=== PATIENT | female | born 1980 | race Caucasian/White ===

== ENCOUNTER 2024-05-06 20:16 | Emergency (ER) | payer OTHER ==
[~2024-05-06] VITALS: Ht 157.5 cm; Wt 99.8 kg
[2024-05-06 20:18] VITALS: BP 118/68; PULSE 111; RESP 16; TEMP 96.8; O2SAT 98
[2024-05-06] MEDS: predniSONE 20 MG TAB PO ONE (20:39)
[2024-05-06 21:10] VITALS: PULSE 91; PULSE 94; RESP 20; RESP 22; O2SAT 97
[2024-05-06] MEDS: ALBUTEROL 0.083% 2.5 MG/3 ML NEBU INH ONE (21:10)
[2024-05-06] MEDS: ALBUTEROL SULFATE/IPRATROPIU 3 ML SOL IH ONE (21:10)
[2024-05-06] MEDS ORDERED: PRED20TA5 PO (21:23)
[2024-05-06 21:48] VITALS: BP 118/68; PULSE 91; RESP 20; TEMP 96.8; O2SAT 97
== END 2024-05-06 21:48 | disposition home or self-care (01) ==
LOC: MED 20:16
DX: J45.901 Unspecified asthma with (acute) exacerbation (principal); E11.9 Type 2 diabetes mellitus without complications; F17.200 Nicotine dependence, unspecified, uncomplicated; Z79.4 Long term (current) use of insulin; Z79.899 Other long term (current) drug therapy; Z90.49 Acquired absence of other specified parts of digestive tract; Z98.890 Other specified postprocedural states
CPT/HCPCS: 94640; 99283; J7512; J7613

== ENCOUNTER 2024-05-12 14:05 | Emergency (ER) | payer OTHER ==
[~2024-05-12] VITALS: Ht 157.5 cm; Wt 106.1 kg
[~2024-05-12 14:05] MED LIST: PRED20TA5 PO
[2024-05-12 14:13] VITALS: BP 131/107; PULSE 82; RESP 16; TEMP 99.3; O2SAT 97
[2024-05-12 15:00] LABS: BASOPHILS # (AUTO) 0.1 K/uL (0.00-0.22); BASOPHILS % (AUTO) 0.6 % (0.0-2.0); EOSINOPHILS # (AUTO) 0.1 K/uL (0-0.4); EOSINOPHILS % (AUTO) 0.9 % (0.0-4.0); HEMATOCRIT 40.4 % (36-48); HEMOGLOBIN 13.4 g/dL (12.0-16.0); LYMPHOCYTES # (AUTO) 5.1 K/uL (2.5-16.5); LYMPHOCYTES % (AUTO) 33.4 % (20.5-51.1); MEAN CORPUSCULAR HEMOGLOBIN 29 pg (27-31); MEAN CORPUSCULAR HGB CONC 33 g/dL (33-37); MEAN CORPUSCULAR VOLUME 87.1 fL (80-94); MONOCYTES # (AUTO) 0.9 K/uL (0.8-1.0); MONOCYTES % (AUTO) 6.3 % (1.7-9.3); NEUTROPHILS # (AUTO) 8.9 K/uL (1.8-7.7); NEUTROPHILS % (AUTO) 58.8 % (42.2-75.2); PLATELET COUNT (AUTO) 332 K/uL (140-450); RED BLOOD CELL COUNT(AUTO) 4.64 MIL/uL (4.20-5.40); RED CELL DISTRIBUTION WIDTH 13.7 % (11.6-13.7); WHITE BLOOD COUNT (AUTO) 15.1 K/uL (4.8-10.8)
[2024-05-12 15:04] LABS: APPEARANCE,URINE CLEAR (CLEAR); BILIRUBIN,URINE NEGATIVE (NEGATIVE); BLOOD, URINE NEGATIVE (NEGATIVE); COLOR,URINE YELLOW (YELLOW); LEUKOCYTE ESTERASE ,URINE NEGATIVE (NEGATIVE); NITRITE, URINE NEGATIVE (NEGATIVE); PH,URINE 6.5 (5.0-9.0); PROTEIN,URINE NEGATIVE (NEGATIVE); UGLUCOSE NEGATIVE (NEGATIVE); UROBILINOGEN,URINE 0.2 EU/dL (0.2 - 1)
[2024-05-12 15:26] LABS: ANION GAP 13.8 (8-16); CALCIUM 8.1 mg/dL (8.5-10.1); CARBON DIOXIDE 27.3 mmol/L (21-32); CREATININE 0.6 mg/dL (0.6-1.3); POTASSIUM 3.1 mmol/L (3.5-5.1)
[2024-05-12 15:28] LABS: ALBUMIN 3.4 g/dL (3.4-5.0); BILIRUBIN,DIRECT 0.1 mg/dL (0.0-0.3); TOTAL BILIRUBIN 0.4 mg/dL (0.0-1.0)
[2024-05-12] MEDS ORDERED: ALUMINUM HYD/MAG/SIMETHICONE 30 ML UDC ONE (15:35)
[2024-05-12] MEDS ORDERED: DICYCLOMINE HCL LIQUID 10 MG/5 ML UDC ONE (15:35)
[2024-05-12] MEDS: ONDANSETRON 4 MG/2 ML VIAL IVP ONE (15:38)
[2024-05-12] MEDS: DICYCLOMINE HCL LIQUID 20 MG, ALUMINUM HYD/MAG/SIMETHICONE 30 ML, LIDOCAINE VISCOUS 2% ... PO ONE (15:39)
[2024-05-12] MEDS: POTASSIUM CHLORIDE 10 MEQ TABER PO ONE (15:57)
[2024-05-12] MEDS ORDERED: ONDA-188 PO (16:24)
[2024-05-12 16:40] VITALS: BP 131/107; PULSE 82; RESP 16; TEMP 99.3; O2SAT 97
== END 2024-05-12 16:40 | disposition home or self-care (01) ==
LOC: MED 14:05
DX: R07.9 Chest pain, unspecified (principal); K21.9 Gastro-esophageal reflux disease without esophagitis; E11.9 Type 2 diabetes mellitus without complications; J45.909 Unspecified asthma, uncomplicated; Z79.899 Other long term (current) drug therapy; Z79.4 Long term (current) use of insulin; Z90.49 Acquired absence of other specified parts of digestive tract
CPT/HCPCS: 36415; 71045; 80048; 80076; 81003; 81025; 82948; 83690; 84484; 85025; 93005; 96374; 99285; J2405; Q0092